=== PATIENT | female | born 1960 | race Two or more races ===

== ENCOUNTER 2017-09-24 18:20 | Inpatient (IN) | payer OTHER ==
[~2017-09-24] VITALS: Ht 152.4 cm; Wt 80.3 kg
[2017-09-24 18:24] VITALS: Ht 152.4 cm; Wt 80.3 kg
[2017-09-24 19:12] LABS: BASOPHIL % 0.2 % (0-2); PLATELET COUNT 286 x10^3mcL (130-400); RED CELL DISTRIBUTION WIDTH 13.6 % (11.5-14.5)
[2017-09-24 19:16] LABS: microscopic required? NO
[2017-09-24 19:29] LABS: CALCIUM 9.4 mg/dL (8.5-10.1); CARBON DIOXIDE 27.5 mmol/L (21-32); CHLORIDE SERUM 104 mmol/L (98-107); CREATININE SERUM 0.9 mg/dL (0.6-1.0); GFR1 > 60 mL/min; GLUCOSE SERUM 168 mg/dL (74-106); POTASSIUM SERUM 3.3 mmol/L (3.5-5.1); SODIUM SERUM 140 mmol/L (136-145)
[2017-09-24 19:32] LABS: ALBUMIN 3.7 g/dL (3.4-5.0); ALKALINE PHOSPHATASE 101 U/L (46-116); ALT/SGPT 35 U/L (14-59); AST/SGOT 25 U/L (15-37); BILIRUBIN TOTAL 0.33 mg/dL (0.20-1.00)
[2017-09-24 19:35] LABS: UA SPECIFIC GRAVITY <=1.005 (1.005-1.035); urine erythrocyte NEGATIVE (NEGATIVE)
[2017-09-24 20:52] LABS: AMPHETAMINE QUAL UR NONE DETECTED (NEG <=1000)
[2017-09-24 21:04] LABS: T3 TOTAL 1.07 ng/mL
[2017-09-24 21:11] LABS: CHOLESTEROL/HDL RATIO 3.7; MAGNESIUM 1.8 mg/dL (1.8-2.4); PHOSPHOROUS 3.7 mg/dL (2.5-4.9)
[2017-09-24 21:20] VITALS: BP 138/84
[2017-09-24 21:22] LABS: FREE T4 0.96 ng/dL (0.76-1.46); FREE THYROXINE INDEX 2.7 ug/dL (1.4-4.5); T4(THYROXINE) 8.1 ug/dL (4.7-13.3)
[2017-09-25 05:00] VITALS: BP 148/79
[2017-09-25 08:31] VITALS: BP 126/81
[2017-09-25] MEDS ORDERED: LIPI10 PO (11:03)
[2017-09-25] MEDS ORDERED: ZESTRIL5 MG PO (11:07)
[2017-09-25] MEDS ORDERED: METOPROLOL SUCC25 M2 PO (11:09)
[2017-09-25 11:32] LABS: BASOPHIL % 0.4 % (0-2); PLATELET COUNT 282 x10^3mcL (130-400); RED CELL DISTRIBUTION WIDTH 13.3 % (11.5-14.5)
[2017-09-25 12:01] LABS: CALCIUM 9.3 mg/dL (8.5-10.1); CARBON DIOXIDE 23.1 mmol/L (21-32); CHLORIDE SERUM 108 mmol/L (98-107); CREATININE SERUM 0.7 mg/dL (0.6-1.0); GFR1 > 60 mL/min; GLUCOSE SERUM 82 mg/dL (74-106); POTASSIUM SERUM 4.1 mmol/L (3.5-5.1); SODIUM SERUM 141 mmol/L (136-145)
[2017-09-25 13:36] VITALS: BP 136/79
[2017-09-25 15:38] VITALS: BP 136/79
[2017-09-25] MEDS ORDERED: GOOD SENSE ASPI81 M3 PO (15:47)
== END 2017-09-25 16:33 | disposition home or self-care (01) | DRG 199 ==
LOC: ED 18:20 → DU 20:08
PROVIDERS: Emergency Medicine; Family Medicine
DX: I16.0 Hypertensive urgency (principal); E78.5 Hyperlipidemia, unspecified; R07.89 Other chest pain; R73.03 Prediabetes; E87.6 Hypokalemia; E66.9 Obesity, unspecified; M79.672 Pain in left foot; Z53.29 Procedure and treatment not carried out because of patient's decision for other reasons; Z56.0 Unemployment, unspecified; Z68.34 Body mass index [BMI] 34.0-34.9, adult
CPT/HCPCS: 83880; 84439

== ENCOUNTER 2018-06-11 17:47 | Emergency (ER) | payer MEDICAID ==
[~2018-06-11] VITALS: Ht 162.6 cm; Wt 68.5 kg
[~2018-06-11 17:47] MED LIST: GOOD SENSE ASPI81 M3 PO; LIPI10 PO; METOPROLOL SUCC25 M2 PO; ZESTRIL5 MG PO
[2018-06-11 18:02] VITALS: Ht 162.6 cm; Wt 68.5 kg
[2018-06-11 18:40] VITALS: BP 131/83
== END 2018-06-11 18:41 | disposition home or self-care (01) ==
LOC: ED 17:47
DX: R82.998 Other abnormal findings in urine (principal); I10 Essential (primary) hypertension

== ENCOUNTER 2018-12-26 20:29 | Emergency (ER) | payer MEDICAID ==
[~2018-12-26] VITALS: Ht 152.4 cm; Wt 87.1 kg
[2018-12-26 21:10] VITALS: Ht 152.4 cm; Wt 87.1 kg
[2018-12-27 00:09] VITALS: BP 143/82
== END 2018-12-27 00:09 | disposition home or self-care (01) ==
LOC: ED 20:29
DX: H93.13 Tinnitus, bilateral (principal); J06.9 Acute upper respiratory infection, unspecified; I10 Essential (primary) hypertension

== ENCOUNTER 2019-09-07 19:29 | Emergency (ER) | payer MEDICAID ==
[~2019-09-07] VITALS: Ht 152.4 cm; Wt 87.5 kg
[2019-09-07 19:43] VITALS: Ht 152.4 cm; Wt 87.5 kg
[2019-09-07 21:00] LABS: microscopic required? NO
[2019-09-07 21:05] LABS: UA SPECIFIC GRAVITY 1.015 (1.005-1.035); urine erythrocyte NEGATIVE (NEGATIVE)
[2019-09-07 21:06] LABS: BASOPHIL % 0.2 % (0-2); PLATELET COUNT 314 x10^3mcL (130-400); RED CELL DISTRIBUTION WIDTH 13.9 % (11.5-14.5)
[2019-09-07 21:38] LABS: CARBON DIOXIDE 30.2 mmol/L (21-32); CHLORIDE SERUM 106 mmol/L (98-107); POTASSIUM SERUM 3.8 mmol/L (3.5-5.1); SODIUM SERUM 141 mmol/L (136-145)
[2019-09-07 21:39] LABS: ALBUMIN 3.8 g/dL (3.4-5.0); ALKALINE PHOSPHATASE 138 U/L (46-116); ALT/SGPT 27 U/L (14-59); AST/SGOT 17 U/L (15-37); BILIRUBIN TOTAL 0.2 mg/dL (0.20-1.00); CALCIUM 8.9 mg/dL (8.5-10.1); CREATININE SERUM 0.8 mg/dL (0.6-1.0); GFR1 > 60 mL/min; GLUCOSE SERUM 97 mg/dL (74-106); TOTAL PROTEIN, SERUM 8.1 g/dL (6.4-8.2)
[2019-09-07 22:32] VITALS: BP 117/69
== END 2019-09-07 22:32 | disposition home or self-care (01) ==
LOC: ED 19:29
PROVIDERS: Emergency Medicine
DX: B34.9 Viral infection, unspecified (principal); I10 Essential (primary) hypertension
CPT/HCPCS: 36415; 87804; J7030; Q0092